=== PATIENT | male | born 1955 | race Caucasian/White ===

== ENCOUNTER 2016-09-15 19:01 | Emergency (ER) | payer OTHER ==
[2016-09-15 20:31] LABS: HEMOGLOBIN 15.2 gm/dl (14.0-17.5); RED BLOOD COUNT 5.02 M/UL (4.20-5.50); WHITE BLOOD COUNT 7.8 K/UL (4.5-11.0)
[2016-09-15 20:52] LABS: BUN/CREATININE RATIO 18 (0-10)
== END 2016-09-15 22:05 | disposition home or self-care (01) ==
LOC: ER1 19:01
PROVIDERS: Emergency Medicine
DX: R10.13 Epigastric pain (principal); R11.0 Nausea; Z90.49 Acquired absence of other specified parts of digestive tract
CPT/HCPCS: 36415; 71010; 80053; 81001; 83690; 84484; 85025; 93005; 99284